=== PATIENT | female | born 1955 | race Hispanic/Latino ===

== ENCOUNTER 2017-10-18 18:01 | Emergency (ER) | payer OTHER | END 2017-10-18 19:28 | disposition home or self-care (01) | LOC: EDH 18:01 | DX: M79.89 Other specified soft tissue disorders (principal); E11.9 Type 2 diabetes mellitus without complications; I10 Essential (primary) hypertension; R60.0 Localized edema; Z79.4 Long term (current) use of insulin | CPT/HCPCS: 93971 ==

== ENCOUNTER → 2018-02-01 | Outpatient (CLI) | payer OTHER | END | disposition home or self-care (01) | LOC: OIH 15:35 | PROVIDERS: ATTEND Internal Medicine Cardiovascular Disease | DX: Z13.6 Encounter for screening for cardiovascular disorders (principal) | CPT/HCPCS: 75571 ==

== ENCOUNTER → 2025-05-07 | Outpatient (CLI) | payer BC ==
[~2025-05-07] MED LIST: IOHEXOL 350 MG/ML 100ML INFUS..BTL IV ONE; IOHEXOL-350 50ML VIAL IV ONE
--- NOTE | 2025-05-08 08:28 | HMCIMG ---
Exam: CTA OF THE ABDOMINAL AORTA AND BILATERAL LOWER EXTREMITIES Clinical data: Peripheral vascular disease. Technique: Axial contrast-enhanced thin-slice CT angiography of the abdomen, pelvis, and lower extremities was performed with intravenous contrast for evaluation of the abdominal/pelvic/lower extremity arteries. Coronal, sagittal, and 3D volume reconstructions were performed. Reformatted/3D-MPR images were performed. Prior studies: No prior studies submitted. Findings: No definite abnormality was seen on 3D reformatted images. Abdominal aorta and its branches: The abdominal aorta and the abdominal aortic branches are unremarkable. Aortic Bifurcation: Unremarkable Bilateral Common, origins of the internal and external Iliac arteries: Unremarkable Bilateral Common femoral, origin of the deep femoral, and Superficial femoral arteries: Unremarkable Bilateral Popliteal arteries: Unremarkable Tibio-peroneal trifurcation: Unremarkable Anterior Tibial, Posterior Tibial, and Peroneal arteries: Unremarkable Dorsalis Pedis artery: Unremarkable left dorsalis pedis artery. Thin opacification of the proximal right dorsalis pedis artery. The distal portion is not well opacified. 3 vessel flow to the foot. Osseous and Soft tissue structures: No acute osseous abnormality. Significant subcutaneous edema in both legs with multiple soft tissue calcifications, likely phleboliths. Mild constipation. No bowel obstruction. There is mild acute sigmoid diverticulitis. IMPRESSION: No evidence of stenosis, aneurysm, or vascular malformation except for the thin proximal portion of the right dorsalis pedis artery and nonopacification of its distal portion. This may be due to bolus tapering. Further evaluation with ultrasound is recommended. Significant subcutaneous edema in both legs with multiple soft tissue calcifications, likely phleboliths. Mild acute sigmoid diverticulitis. No bowel obstruction. Constipation. /[place]
== END | disposition home or self-care (01) ==
LOC: RAH 08:49
PROVIDERS: ATTEND Internal Medicine Cardiovascular Disease
DX: K57.32 Diverticulitis of large intestine without perforation or abscess without bleeding (principal); I73.9 Peripheral vascular disease, unspecified; R60.0 Localized edema; K59.00 Constipation, unspecified
CPT/HCPCS: 75635; Q9967 ×2